=== PATIENT | female | born 1950 | race Caucasian/White ===

== ENCOUNTER 2022-10-04 17:05 | Observation (INO) | payer MEDICARE, OTHER ==
[2022-10-04 17:51] VITALS: BMI 25.7
[2022-10-04] MEDS ORDERED: Aspirin Chewable 81 MG TAB PO SCH (21:00)
[2022-10-04 21:08] LABS: Magnesium 2.2 mg/dL (1.6-2.6)
[2022-10-04 21:15] LABS: Troponin I 0.071 ng/mL (< 0.028)
[2022-10-04 23:35] LABS: Troponin I 0.059 ng/mL (< 0.028)
[2022-10-05 04:32] LABS: Anion Gap 14 mmol/L (10-20); BUN (Urea Nitrogen) 10 mg/dL (9.8-20.1); Calc. Creatinine Clearance 57 mL/min (70-130); Calcium 8.9 mg/dL (7.8-10.44); Carbon Dioxide 23 mmol/L (23-31); Cardiac Risk 4.6 (Less than 4.5); Chloride 109 mmol/L (98-107); Cholesterol 169 mg/dl (< 200 Desired); Estimated GFR 64; Glucose 100 mg/dL (83-110); HDL Cholesterol 37 mg/dL (>60 Neg Risk); LDL Cholesterol, Calculated 110 mg/dL; Potassium 3.8 mmol/L (3.5-5.1); Sodium 142 mmol/L (136-145); Triglycerides 111 mg/dL (Less than 150)
[2022-10-05] MEDS ORDERED: Aspirin Chewable 81 MG TAB PO SCH (09:00)
[2022-10-05 13:26] VITALS: BP 156/63; TEMP 98.4
== END 2022-10-05 17:10 | disposition home or self-care (01) ==
LOC: INTOOBSV 17:05 → CSHTELE 17:05
PROVIDERS: ADMIT Internal Medicine; ATTEND Internal Medicine
DX: R55 Syncope and collapse (principal); G43.009 Migraine without aura, not intractable, without status migrainosus; Z79.899 Other long term (current) drug therapy; Z20.822 Contact with and (suspected) exposure to COVID-19; R77.8 Other specified abnormalities of plasma proteins
CPT/HCPCS: 71045; 80048; 80061; 83735; 84484; 93005; 93306; 93880; 96372; G0378 ×2; U0003; U0005; 36415; 93010; J1650